=== PATIENT | male | born 1995 | race Caucasian/White ===

== ENCOUNTER 2020-01-31 20:42 | Emergency (ER) | payer OTHER, SELFPAY ==
[2020-01-31 20:44] VITALS: BP 162/83; PULSE 83; RESP 20; TEMP 36; O2SAT 100; BMI 30.8
[2020-01-31 20:49] VITALS: O2SAT 100
[2020-01-31] MEDS: fentaNYL 100 MCG/2 ML Ampul IV (20:55)
[2020-01-31] MEDS: Diphth,Pertuss(Acell),Tet Vac 0.5 ML Vial IM (20:59)
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
[2020-01-31 21:06] LABS: Absolute Lymphocyte Count 2.39 X10^3/uL (0.83-4.51); Absolute Neutrophil Count 7.6 X10^3/uL (2.0-7.7); Basophil# 0.05 X10^3/uL; Basophil% 0.5 % (0-1); Eosinophil# 0.06 X10^3/uL; Eosinophils% 0.5 % (0-5); Hematocrit 44.8 % (40-54); Hemoglobin 14.9 g/dL (13.0-16.5); Lymphocyte # 2.39 X10^3/ul (4.0); Lymphocyte % 21.8 % (19-41); Mean Corp Hgb Conc 33.3 g/dL (32-36); Mean Corpuscular Hgb 31.2 pg (27.0-32.0); Mean Corpuscular Volume 93.7 fL (80-94); Mean Platelet Vol. 8.3 fl (6.2-12.0); Monocyte# 0.53 X10^3/uL; Monocyte% 4.8 % (0-10); NRBC Flagged by Analyzer 0 % (0-5); Neutrophil % 69.3 % (47-70); Platelet Count 320 K/mm3 (150-450); RBC Distribution Width CV 11.7 % (11.6-14.6); RBC Distribution Width SD 40.5 fl (35.1-43.9); Red Blood Count 4.78 M/mm3 (4.6-6.2)
[2020-01-31 21:15] VITALS: BP 146/79; PULSE 77; RESP 18; O2SAT 100
[2020-01-31] MEDS: Cefazolin 1 GM/50 ML BAG IV (21:17)
--- NOTE | 2020-01-31 21:18 | CM.ED ---
Social Work Patient to be transferred to [facility]. Patient mother, Kaila inquiring about visitation policy at [facility] currently. This foster care social worker able to provide Kaila with handout found on [facility] website explaining visitation. Haider JENKINS, SAMUEL
[2020-01-31] MEDS: fentaNYL 100 MCG/2 ML Ampul 50 MCG IV (21:22)
[2020-01-31 21:28] LABS: Partial Thromboplast Time 24.9 Seconds (24.1-36.2)
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
[2020-01-31 22:00] LABS: Anion Gap 5 (5-15); BUN 11 mg/dL (7-18); BUN/Creat Ratio 12.5 RATIO (10-20); Calcium,Total 8.7 mg/dL (8.5-10.1); Chloride 106 mmol/L (98-107); Creatinine, Serum 0.88 mg/dL (0.70-1.30); EST Glomerular Filtration Rate 113 mL/min (>60); Est Glom Filt Rate - Afr Amer 136 mL/min (>60); Estimated Creatinine Clearance 142.07 ml/min; Glucose 108 mg/dL (74-106); Potassium 3.1 mmol/L (3.5-5.1); Sodium Level 140 mmol/L (136-145)
[2020-01-31 22:03] VITALS: BP 131/76; PULSE 74; RESP 20; O2SAT 100
[2020-01-31 22:08] LABS: Alcohol, Blood (Medical)-Serum < 3.0 mg/dL
[2020-01-31] MEDS: Ondansetron 4 MG/2 ML Vial IV (22:20)
[2020-01-31 22:26] LABS: Amphetamine Urine VISTA NEGATIVE (<1000 ng/mL); Barbiturate Urine VISTA NEGATIVE (< 200 ng/mL); Benzodiazepine Urine VISTA NEGATIVE (< 200 ng/mL); Cocaine Urine VISTA NEGATIVE (< 300 ng/mL); Ecstacy Urine VISTA NEGATIVE (< 500 ng/mL); Methadone Urine VISTA NEGATIVE (< 300 ng/mL); PCP Urine VISTA NEGATIVE (< 25 ng/mL); THC Urine VISTA NEGATIVE (< 50 ng/mL); Vista UDS pH Range 5
[2020-01-31 22:27] VITALS: BP 131/76; PULSE 78; RESP 20; O2SAT 99
[2020-01-31 23:05] VITALS: BP 124/79; PULSE 93; RESP 18; O2SAT 96
== END 2020-01-31 23:05 | disposition short-term general hospital (02) ==
PROVIDERS: Emergency Provider Emergency Medicine; PCP Family Medicine
DX: S72.91XB Unspecified fracture of right femur, initial encounter for open fracture type I or II (principal); S01.81XA Laceration without foreign body of other part of head, initial encounter; Z23 Encounter for immunization; V00-Y99 External causes of morbidity
CPT/HCPCS: 51702; 71045; 72170; 73552; 80048; 80307; 80320; 85025; 85730; 90715; 96365; 96372; 96374; 96375; 99285; J7030; A4216; G0480; J2405